=== PATIENT | male | born 1955 | race African-American/Black ===

== ENCOUNTER → 2016-06-10 | Outpatient (CLI) | payer OTHER ==
[~2016-06-10] MED LIST: REGADENOSON 0.4 MG/5 ML DISP.SYRIN. IV ONE
== END | disposition home or self-care (01) ==
LOC: PCVCIMAG 08:29
PROVIDERS: ATTEND Internal Medicine Cardiovascular Disease
DX: I25.10 Atherosclerotic heart disease of native coronary artery without angina pectoris (principal); I63.9 Cerebral infarction, unspecified; J44.9 Chronic obstructive pulmonary disease, unspecified
CPT/HCPCS: 78452; 93017; A9500; J2785; 93351

== ENCOUNTER → 2017-01-04 | Outpatient (CLI) | payer OTHER ==
--- NOTE | 2017-01-04 09:43 | PCVCIMAG ---
APPROVED REPORT Study performed: 01/04/2017 07:56:40 EXAM: Comprehensive 2D, Doppler, and color-flow Echocardiogram Patient Location: Echo lab Status: routine BSA: 2.31 HR: 69 bpmBP: 120/78 mmHg Rhythm: NSR Other Information Study Quality: Adequate Risk Factors: Cardiac Risk Factors: HTN Indications Pacemaker Ischemic Cardiomyopathy, CAD, ICD 2D Dimensions LVEF(%): 26.11 (>50%) IVSd: 11.33 (7-11mm) LVDd: 54.18 mm PWd: 11.14 (7-11mm)Ascending Ao: 38.01 (22-36mm) LVDs: 47.56 (25-40mm) Left Atrium: 50.06 (27-40mm) Aortic Root: 37.59 mm LV Single Plane 4CH: 42.32 % LV Single Plane 2CH: 38.23 %Rodgers's LVEF: 40.28 % Biplane EF: 41.4 % Volumes Left Atrial Volume (Systole) Single Plane 4CH: 84.93 mLSingle Plane 2CH: 83.41 mL LA ESV Index: 37.00 mL/m2 Aortic Valve AoV Peak Da.: 1.27 m/s AO Peak Gr.: 6.44 mmHgLVOT Max P.54 mmHg LVOT Max V: 0.62 m/s Mitral Valve E/A Ratio: 0.6 MV Decel. Time: 196.73 ms MV E Max Da.: 0.26 m/s MV A Da.: 0.42 m/s IVRT: 176.47 ms Pulmonary Valve PV Peak Da.: 0.79 m/sPV Peak Gr.: 2.50 mmHg Pulmonary Vein P Vein S: 0.25 m/sP Vein A: 0.29 m/s P Vein D: 0.30 m/sP Vein A Dur.: 141.9 msec P Vein S/D Ratio: 0.83 Tricuspid Valve TR Peak Da.: 2.24 m/s TR Peak Gr.: 20.07 mmHg Left Ventricle The left ventricle is normal size. There is normal LV segmental wall motion. Mild concentric left ventricular hypertrophy. Left ventricular systolic function is moderately decreased. LVEF is 35-40%. Grade I - abnormal relaxation pattern. Right Ventricle The right ventricle is normal size. The right ventricular systolic function is normal. Pacemaker lead is present in the right ventricle. Atria Left atrium is mildly dilated. Right atrium size is normal. Pacemaker lead is present in the right atrium. Aortic Valve The aortic valve is normal in structure. No aortic regurgitation is present. There is no aortic valvular stenosis. Mitral Valve The mitral valve is normal in structure. Trace mitral regurgitation. No evidence of mitral valve stenosis. Tricuspid Valve The tricuspid valve is normal in structure. Mild tricuspid regurgitation with PAP of 27 mmHg. Pulmonic Valve The pulmonary valve is normal in structure. There is no pulmonic valvular regurgitation. Great Vessels The aortic root is normal in size. IVC is normal in size and collapses with >50% inspiration Pericardium There is no pericardial effusion. <Conclusion> The left ventricle is normal size. Mild concentric left ventricular hypertrophy. Left ventricular systolic function is moderately decreased. LVEF is 35-40%. Grade I - abnormal relaxation pattern. The right ventricle is normal size. Left atrium is mildly dilated. Right atrium size is normal. Pacemaker lead is present in the right atrium. The aortic valve is normal in structure. Trace mitral regurgitation. Mild tricuspid regurgitation with PAP of 27 mmHg. There is no pericardial effusion.
== END | disposition home or self-care (01) ==
LOC: PCVCCLINIC 07:38
PROVIDERS: ATTEND Internal Medicine Cardiovascular Disease
DX: I07.1 Rheumatic tricuspid insufficiency (principal); I25.10 Atherosclerotic heart disease of native coronary artery without angina pectoris; I25.5 Ischemic cardiomyopathy; I10 Essential (primary) hypertension; I50.20 Unspecified systolic (congestive) heart failure
CPT/HCPCS: 93306

== ENCOUNTER → 2018-07-18 | Outpatient (CLI) | payer OTHER ==
--- NOTE | 2018-07-19 16:58 | PCVCIMAG ---
APPROVED REPORT Study performed: 07/18/2018 13:38:17 EXAM: Comprehensive 2D, Doppler, and color-flow Echocardiogram Patient Location: Echo lab Status: routine BSA: 2.31 HR: 70 bpmBP: 130/80 mmHg Rhythm: NSR Other Information Study Quality: Good Risk Factors: Cardiac Risk Factors: HTN, Hyperlipidemia Indications CVA/TIA CAD Cardiomyopathy AICD 2D Dimensions IVSd: 14.90 (7-11mm)LVOT Diam: 25.69 (18-24mm) LVDd: 51.76 mm PWd: 14.94 (7-11mm)Ascending Ao: 38.59 (22-36mm) LVDs: 50.23 (25-40mm) Left Atrium: 46.91 (27-40mm) Aortic Root: 34.66 mm LV Single Plane 4CH: 33.39 % LV Single Plane 2CH: 32.72 % Biplane EF: 32.6 % Volumes Left Atrial Volume (Systole) Single Plane 4CH: 77.38 mLSingle Plane 2CH: 54.75 mL LA ESV Index: 28.00 mL/m2 Aortic Valve AoV Peak Da.: 1.37 m/s AO Peak Gr.: 7.48 mmHgLVOT Max P.80 mmHg LVOT Max V: 0.84 m/s CATARINA Vmax: 3.17 cm2 Mitral Valve E/A Ratio: 0.6 MV Decel. Time: 312.01 ms MV E Max Da.: 0.37 m/s MV A Da.: 0.59 m/s Pulmonary Valve PV Peak Gr.: 1.72 mmHg Tricuspid Valve TR Peak Da.: 2.77 m/s TR Peak Gr.: 30.68 mmHg Left Ventricle The left ventricle is normal size. Inferior, apical anterosepal akinesis. Mild concentric left ventricular hypertrophy. Left ventricular systolic function is moderately decreased. LVEF is 25-30%. This study is not technically sufficient to allow evaluation of the LV diastolic function. Right Ventricle The right ventricle is normal size. The right ventricular systolic function is normal. Pacemaker lead is present in the right ventricle. Atria Left atrium is mildly dilated. The right atrium size is normal. Pacemaker lead is present in the right atrium. Aortic Valve The aortic valve is normal in structure. No aortic regurgitation is present. There is no aortic valvular stenosis. Mitral Valve The mitral valve is normal in structure. There is no mitral valve regurgitation noted. No evidence of mitral valve stenosis. Tricuspid Valve The tricuspid valve is normal in structure. Trace tricuspid regurgitation. Pulmonary artery pressure is 38mmHg. Pulmonic Valve The pulmonary valve is normal in structure. There is no pulmonic valvular regurgitation. Great Vessels The aortic root is normal in size. IVC is normal in size and collapses >50% with inspiration. Pericardium There is no pericardial effusion. <Conclusion> The left ventricle is normal size. Mild concentric left ventricular hypertrophy. Inferior, apical anterosepal akinesis. LVEF is 25-30%. The right ventricle is normal size. Left atrium is mildly dilated. The right atrium size is normal. Pacemaker lead is present in the right atrium. There is no aortic valvular stenosis. There is no mitral valve regurgitation noted. Trace tricuspid regurgitation. Pulmonary artery pressure is 38mmHg. The aortic root is normal in size. There is no pericardial effusion.
== END | disposition home or self-care (01) ==
LOC: PCVCIMAG 13:24
PROVIDERS: ATTEND Internal Medicine Cardiovascular Disease
DX: I25.10 Atherosclerotic heart disease of native coronary artery without angina pectoris (principal); I42.9 Cardiomyopathy, unspecified
CPT/HCPCS: 93306